=== PATIENT | female | born 1965 | race Caucasian/White ===

== ENCOUNTER 2018-04-27 04:48 | Inpatient (IN) | payer OTHER ==
[2018-04-27] MEDS ORDERED: HYDROCODONE/APAP (5/325) TAB PO (05:30)
[2018-04-27] MEDS ORDERED: NACL 0.9% 3 ML SYG IV (05:30)
[2018-04-27] MEDS ORDERED: VANCOMYCIN IV PER PHARMACY XX (05:30)
[2018-04-27] MEDS ORDERED: BISACODYL (EC) 5 MG TAB PO (05:30)
[2018-04-27] MEDS ORDERED: ONDANSETRON 4 MG INJ IV (05:30)
[2018-04-27] MEDS ORDERED: DOCUSATE SODIUM 100 MG CAP PO (05:30)
[2018-04-27 05:58] LABS: ADD MAN DIFF? NO
[2018-04-27 06:00] LABS: WHITE BLOOD COUNT 8.8 10^3/ul (4.8-10.8)
[2018-04-27 06:00] LABS: BASOPHILS % 0.2 % (0.0-2.0); EOSINOPHILS # 0.1 10^3/ul (0.0-0.5); EOSINOPHILS % 0.6 % (0.0-7.0); HEMATOCRIT 40.6 % (37.0-47.0); HEMOGLOBIN 13.7 g/dl (12.0-16.0); LYMPHOCYTES % 10.9 % (15.0-51.0); MEAN CORPUSCULAR HEMOGLOBIN 29.9 pg (29.0-33.0); MEAN CORPUSCULAR HGB CONC 33.7 g/dl (32.0-37.0); MEAN CORPUSCULAR VOLUME 88.6 fl (82.0-101.0); MEAN PLATELET VOLUME 10.2 fl (7.4-10.4); MONOCYTE # 0.5 10^3/ul (0.3-0.9); MONOCYTES % 5.7 % (0.0-11.0); NEUTROPHIL # 7.2 10^3/ul (1.6-7.5); NEUTROPHILS % 82.3 % (39.0-77.0); PLATELET COUNT 151 10^3/UL (140-415); RED BLOOD COUNT 4.58 10^6/ul (4.20-5.40); RED CELL DISTRIBUTION WIDTH 12.1 % (11.5-14.5)
[2018-04-27] MEDS ORDERED: GLUCOSE GEL 15 GRAM TUBE BUCCAL (06:00)
[2018-04-27] MEDS ORDERED: GLUCOSE GEL 15 GRAM TUBE PO ×2 (06:00)
[2018-04-27] MEDS ORDERED: DEXTROSE 50% 50 ML SYRINGE IV ×2 (06:00)
[2018-04-27] MEDS ORDERED: GLUCAGON 1 MG INJ IM (06:00)
[2018-04-27] MEDS: VANCOMYCIN 1.5 GM in SOD CHLORIDE 0.9% 250 ML IVPB (06:07)
[2018-04-27 06:46] LABS: ALANINE AMINOTRANSFERASE 20 IU/L (13-69); ALBUMIN 3.8 g/dl (3.3-4.9); ALBUMIN/GLOBULIN RATIO 1.26; ALKALINE PHOSPHATASE 49 IU/L (42-121); ANION GAP 10 (5-13); ASPARTATE AMINO TRANSFERASE 20 IU/L (15-46); BILIRUBIN,INDIRECT 0.4 mg/dl (0-1.1); BILIRUBIN,TOTAL 0.4 mg/dl (0.2-1.3); BLOOD UREA NITROGEN 17 mg/dl (7-20); CALCIUM 9.2 mg/dl (8.4-10.2); CARBON DIOXIDE 26 mmol/L (21-31); CHLORIDE 101 mmol/L (97-110); CHOL/HDL RATIO 3.3 RATIO; CHOLESTEROL 132 mg/dl (100-200); CREATININE 0.71 mg/dl (0.44-1.00); Estimated GFR > 60 mL/min (>60); GLUCOSE 237 mg/dl (70-220); HDL CHOLESTEROL 40 mg/dl (37-92); LDL CHOLESTEROL,CALCULATED 59 mg/dl; MAGNESIUM 1.9 mg/dl (1.7-2.5); POTASSIUM 4.6 mmol/L (3.5-5.1); SODIUM 137 mmol/L (135-144); TOTAL PROTEIN 6.8 g/dl (6.1-8.1); TRIGLYCERIDES 167 mg/dl (0-149)
[2018-04-27 07:14] LABS: HEMOGLOBIN A1C 11.3 % (0-5.9)
[2018-04-27] MEDS: ACETAMINOPHEN 325 MG TAB PO ×2 (07:25→20:57)
[2018-04-27] MEDS: INSULIN ASPART [NOVOLOG] 3 ML PEN SC ×4 (08:19→21:00)
[2018-04-27] MEDS ORDERED: HEPARIN 5,000 UNIT/0.5 ML VIAL ×3 (08:22→20:38)
[2018-04-27] MEDS: HEPARIN 5,000 UNIT/1 ML VIAL SC ×3 (08:26→21:00)
[2018-04-27] MEDS: LISINOPRIL 20 MG TAB PO (08:34)
[2018-04-27] MEDS: metFORMIN 500 MG TAB PO ×2 (13:28→17:39)
[2018-04-27] MEDS: REPAGLINIDE 1 MG TAB PO ×2 (15:26→20:57)
[2018-04-27] MEDS: VANCOMYCIN 750 MG in SOD CHLORIDE 0.9% 150 ML IVPB (17:57)
[2018-04-27] MEDS: ATORVASTATIN 10 MG TAB PO (21:06)
[2018-04-28] MEDS ORDERED: HEPARIN 5,000 UNIT/0.5 ML VIAL (05:53)
[2018-04-28] MEDS: VANCOMYCIN 750 MG in SOD CHLORIDE 0.9% 150 ML IVPB (06:00)
[2018-04-28] MEDS: HEPARIN 5,000 UNIT/1 ML VIAL SC ×2 (06:18→13:16)
[2018-04-28] MEDS: LISINOPRIL 20 MG TAB PO (08:11)
[2018-04-28] MEDS: metFORMIN 500 MG TAB PO (08:12)
[2018-04-28] MEDS: INSULIN ASPART [NOVOLOG] 3 ML PEN SC ×2 (08:14→13:15)
[2018-04-28] MEDS: REPAGLINIDE 1 MG TAB PO (08:19)
[2018-04-28] MEDS: TAMOXIFEN 10 MG TAB PO (12:04)
== END 2018-04-28 14:51 | disposition home or self-care (01) | DRG 601 ==
LOC: 2NE 04:48
DX: N61.0 Mastitis without abscess (principal); Z85.3 Personal history of malignant neoplasm of breast; Z92.21 Personal history of antineoplastic chemotherapy; I10 Essential (primary) hypertension; Z92.3 Personal history of irradiation; Z79.810 Long term (current) use of selective estrogen receptor modulators (SERMs); E11.65 Type 2 diabetes mellitus with hyperglycemia
CPT/HCPCS: 80053; 80061; 82962; 83036; 83735; 84443; 85025